=== PATIENT | female | born 1980 | race Caucasian/White ===

== ENCOUNTER 2024-12-20 12:53 | Observation (INO) | payer OTHER, SELFPAY ==
[2024-12-20 12:54] VITALS: BP 205/137; PULSE 86; RESP 20; TEMP 36.7; O2SAT 95
--- NOTE | 2024-12-20 13:26 | EDS_ITS ---
HPI History of Present Illness Chief Complaint: ETOH Intox Onset/Context/Timing Onset: Today Context: Gradual Onset Timing: Continuous Worsened by: Nothing Relieved by: Nothing Associated Symptoms Associated Symptoms: Positive for palpatations and no; Negative for vomiting*, diarrhea*, fever*, rash*, seizure, tremor, suicidal ideation or homicidal ideation Narrative Narrative: Patient presents requesting detox from alcohol. Patient states she drinks 1/5 of vodka per day. Patient states her last drink was this morning. Patient states she has never been through detox before. Patient states she has had some palpitations. Denies any seizures or tremors. Patient denies any nausea, vomiting, or diarrhea. Patient denies any suicidal or homicidal ideations. Patient denies any chance of . Patient states she ran out of her blood pressure medicine today. Patient states she takes losartan and clonidine. [facility] Medical History (Updated 12/20/24 @ 15:[address] Regulo Brady, DO) Alcohol abuse Hypertension Home Medications ?Medication ?Instructions ?Recorded ?Last Taken ?Type clonidine HCl 0.1 mg tablet 0.1 mg PO TID 12/20/24 History losartan 25 mg tablet 25 mg PO DAILY 12/20/2411/30 History Allergy/AdvReac Type Severity Reaction Status Date / Time codeine Allergy Vomiting Verified 12/20/24 12:57 walnut (walnuts) Allergy Anaphylaxis Verified 12/20/24 12:57 Surgical History (Updated 12/20/24 @ 14:[address] Regulo Brady, DO) History of ear surgery History of lumpectomy of left breast Hx of left knee surgery Social History (Updated 12/20/24 @ 14:[address] Regulo Brady, DO) Smoking Status: Never smoker alcohol intake: current alcohol intake frequency: 3 or more drinks per day Alcohol type: hard liquor substance use type: does not use ROS ROS ED Constitutional Constitutional ED: Denies chills or fever(s) Eyes Eyes: Denies blurry vision or change in vision ENT ENT ED: Denies rhinorrhea or sore throat Cardiovascular Cardiovascular: Reports palpitations; Denies chest pain Respiratory/Chest Respiratory/Chest: Denies cough or dyspnea Gastrointestinal Gastrointestinal: Denies nausea or vomiting Genitourinary Genitourinary ED: Denies dysuria or hematuria Musculoskeletal Musculoskeletal: Reports back pain; Denies neck pain Integumentary Denies abscess or rash Neurologic Neurologic: Denies headache(s) or weakness Allergic/Immunologic Allergic/Immunologic ED: Denies mouth swelling or urticaria EXAM Physical Exam Const Vital Signs: 12/20/24 12:54 12/20/24 13:54 12/20/24 14:12 Temperature 98.1 F Temperature Source Oral Pulse Rate 86 90 Respiratory Rate 20 H 18 18 Blood Pressure 205/137 H Blood Pressure Mean 159 Pulse Ox 95 98 Oxygen Delivery Method Room Air Room Air Room Air 12/20/24 15:00 12/20/24 15:00 Temperature 98 F Temperature Source Pulse Rate 66 69 Respiratory Rate 18 16 Blood Pressure 176/109 H 176/109 H Blood Pressure Mean 131 131 Pulse Ox 100 100 Oxygen Delivery Method Positive well nourished and well developed Constitutional Narrative: BMI is 30.1 General Appearance ED: well developed and NAD HEENT Reports moist mucous membranes Neck supple and no JVD Resp normal respiratory effort and clear to auscultation bilaterally Cardio regular rate and regular rhythm GI soft to palpation, non-tender and non-distended Neuro oriented x3, CN's II-XII intact bilaterally and no sensory deficits noted Sofy Coma Scale: document GCS findings Spontaneous Obeys Commands Oriented 15 Sensorium / Orientation: alert Speech: speech normal Motor Exam: strength 5/5 throughout, general weakness, strength abnormal and muscle tone abnormal Psych mental status grossly normal and thought process normal MDM MDM MDM Narrative Medical decision making narrative: Medical screening labs will be obtained. CBC will be obtained to assess for leukocytosis and anemia. Comprehensive metabolic profile will be obtained to assess for hepatic function, renal function, and electrolyte abnormality. Lipase will be obtained to assess for sepsis. Serum hCG will be obtained to assess for . Serum alcohol level will be obtained to assess for alcohol intoxication. Urinalysis will be obtained to assess for urinary tract infection and hematuria. Urine drug screen will be obtained to assess for substance abuse. Lab Data Attestation: I reviewed the patient's lab results. Lab results narrative: CBC was reviewed and was within normal limits. Comprehensive metabolic profile was reviewed and was essentially within normal limits. AST was slightly elevated at 147 and ALT was 78. Lipase was reviewed and was normal at 75. Se rum hCG was reviewed and was negative. Urinalysis was reviewed. There is 3+ bacteria but 10-25 epithelial cells. Urine ketones were 150. Urine tox screen was reviewed and was negative. Serum alcohol level was reviewed and was 67.9. Labs: Laboratory Results - last 24 hr 12/20/24 12/20/24 13:52 14:15 WBC 5.7 RBC 3.77 L Hgb 13.4 Hct 37.4 MCV 99.2 H MCH 35.5 H MCHC 35.8 RDW Std Deviation 47.8 H RDW Coeff of Rohan 13.2 Plt Count 156 MPV 10.6 Immature Gran % (Auto) 0.300 Neut % (Auto) 67.8 Lymph % (Auto) 22.6 [place] % (Auto) 7.3 Eos % (Auto) 1.0 Baso % (Auto) 1.0 Absolute Neuts (auto) 3.9 Absolute Lymphs (auto) 1.29 Nucleated RBC % 0 Sodium 138 Potassium 3.4 Chloride 98 Carbon Dioxide 21.4 Anion Gap 19 H BUN 6 Creatinine 0.62 L Estim Creat Clear Calc 107.42 Est GFR (MDRD) Non-Af 114 BUN/Creatinine Ratio 10.4 Glucose 75 Calcium 9.1 Total Bilirubin 0.86 AST 147 H ALT 78 H Alkaline Phosphatase 59 Total Protein 7.2 Albumin 4.5 Globulin 2.6 Albumin/Globulin Ratio 1.7 Lipase 75 Serum , Qual NEGATIVE Urine Color Yellow Urine Clarity Cloudy Urine pH 7.0 Ur Specific [place] 1.015 Urine Protein 100 H Urine Glucose (UA) Normal Urine Ketones 150 A* Urine Occult Blood 10 H Urine Nitrite Negative Urine Bilirubin Negative Urine Urobilinogen Normal Ur Leukocyte Esterase Negative Urine RBC 0-5 SEEN Urine WBC 0-5 SEEN Ur Squamous Epith Cells 10-25 SEEN Urine Bacteria 3+ Hyaline Casts 0-5 SEEN Urine Mucus 1+ Urine Opiates Screen NEGATIVE U Buprenorphine Qual NEGATIVE Ur Oxycodone Screen NEGATIVE Urine Methadone Screen NEGATIVE Urine Fentanyl Screen NEGATIVE Ur Barbiturates Screen NEGATIVE Ur Phencyclidine Scrn NEGATIVE Ur Amphetamines Screen NEGATIVE U Benzodiazepines Scrn NEGATIVE Urine Cocaine Screen NEGATIVE U Cannabinoids Screen NEGATIVE Ethyl Alcohol 67.9 H Treatment and Re-Evaluation Narrative: Patient was given her dose of losartan and clonidine. Patient's blood pressure improved to 176/109. Patient was advised of her findings. Case was discussed with the hospitalist. She will admit the patient to her service. Patient understood and was agreeable with the plan. All questions were answered. Discharge Plan Dx/Rx/DC Orders Clinical Impression: Alcohol withdrawal, Hypertension, Desire for detoxification Disposition Disposition: Acute Care Hospital [facility] Discharge Date/Time: 12/20/24 16:02
[2024-12-20 13:54] VITALS: PULSE 90; RESP 18; O2SAT 98
[2024-12-20 14:12] VITALS: RESP 18
[2024-12-20 14:22] LABS: Amphetamine Urine NEGATIVE (<1000 ng/mL); Barbiturate Urine NEGATIVE (< 200 ng/mL); Benzodiazepine Urine NEGATIVE (< 200 ng/mL); Buprenorphine Urine NEGATIVE (< 200 ng/mL); Cocaine Urine NEGATIVE (< 300 ng/mL); Fentanyl, Urine NEGATIVE; Methadone Urine NEGATIVE (< 300 ng/mL); Opiates Urine NEGATIVE (< 300 ng/mL); Oxycodone, Urine NEGATIVE (< 100 ng/mL); PCP Urine NEGATIVE (< 25 ng/mL); THC Urine NEGATIVE (< 50 ng/mL)
[2024-12-20 14:26] LABS: Color, Urine Yellow (Yellow); Glucose, Dipstick Normal (Normal); Leukocyte Esterase-Dipstick Negative /ul (Negative); Nitrite-Dipstick Negative (Negative); Occult Blood-Urine 10 /ul (Negative); Protein-Dipstick 100 mg/dl (Negative); Specific Gravity, Urine 1.015 (1.002-1.030); Urine Bilirubin Dipstick Negative (Negative); Urine Clarity Cloudy (Clear); Urine Urobilinogen Normal (Normal)
[2024-12-20 14:29] LABS: Absolute Lymphocyte Count 1.29 X10^3/uL (0.83-4.51); Absolute Neutrophil Count 3.9 X10^3/uL (2.0-7.7); Basophil# 0.06 X10^3/uL; Eosinophil# 0.06 X10^3/uL; Hematocrit 37.4 % (37-47); Hemoglobin 13.4 g/dL (12.0-15.0); Lymphocyte # 1.29 X10^3/ul (0.83-4.51); Lymphocyte % 22.6 % (19-41); Mean Corp Hgb Conc 35.8 g/dL (32-36); Mean Corpuscular Hgb 35.5 pg (27.0-32.0); Mean Corpuscular Volume 99.2 fL (81-99); Mean Platelet Vol. 10.6 fl (6.2-12.0); Monocyte# 0.42 X10^3/uL; Monocyte% 7.3 % (0-10); NRBC Flagged by Analyzer 0 % (0-5); Neutrophil # 3.87 X10^3/uL (2.7-7.7); Neutrophil % 67.8 % (47-70); Platelet Count 156 K/mm3 (150-450); RBC Distribution Width CV 13.2 % (11.6-14.6); RBC Distribution Width SD 47.8 fl (35.1-43.9); Red Blood Count 3.77 M/mm3 (4.2-5.4); White Blood Count 5.7 K/mm3 (4.4-11.0)
[2024-12-20 14:29] LABS: Ketone-Dipstick 150 mg/dl (Negative)
[2024-12-20 14:43] LABS: Internal QC Validated? YES +Cl - CLEAR BKGD; Pregnancy, Serum, hCG Quali. NEGATIVE Negative
[2024-12-20 14:48] LABS: Alcohol, Blood (Medical)-Serum 67.9 mg/dL (<=10.0)
[2024-12-20 14:49] LABS: ALB/GLOB Ratio 1.7 RATIO (0.9-2.4); AST(SGOT) 147 U/L (<=31); Alanine Aminotransfer ALT/SGPT 78 U/L (<=34); Albumin, Serum 4.5 g/dL (3.5-5.0); Alkaline Phosphatase 59 U/L (35-104); Anion Gap 19 (5-15); BUN 6 mg/dL (4-19); BUN/Creat Ratio 10.4 RATIO (10-20); Calcium,Total 9.1 mg/dL (7.6-11.0); Carbon Dioxide 21.4 mmol/L (21.0-32.0); Chloride 98 mmol/L (98-108); Creatinine, Serum 0.62 mg/dL (0.70-1.20); EST Glomerular Filtration Rate 114 (>60); Estimated Creatinine Clearance 107.42 ml/min (50-250); Globulin 2.6 g/dL (2.2-4.2); Glucose 75 mg/dL (70-99); Lipase 75 U/L (13-75); Potassium 3.4 mmol/L (3.3-5.1); Protein, Total 7.2 g/dL (5.9-8.4); Sodium Level 138 mmol/L (133-145); Total Bilirubin 0.86 mg/dL (0.00-1.30)
[2024-12-20 14:52] LABS: Red Blood Cells-Urine 0-5 SEEN /hpf (0-5); White Blood Cells 0-5 SEEN /hpf (0-5)
[2024-12-20 14:53] LABS: Bacteria 3+ /hpf (None Seen); Mucous, Urine 1+ /hpf (<or=2+); Squamous Epithelial Cells - UA 10-25 SEEN /hpf (5-10)
[2024-12-20 14:55] LABS: Hyaline Cast 0-5 SEEN /lpf (0-5)
[2024-12-20] MEDS: cloNIDine HCl 0.1 MG Tablet PO ×2 (14:58→20:09)
[2024-12-20] MEDS: Losartan Potassium 25 MG Tablet PO (14:58)
[2024-12-20 15:00] VITALS: BP 176/109; PULSE 66; PULSE 69; RESP 16; RESP 18; TEMP 36.6; O2SAT 100
--- NOTE | 2024-12-20 15:44 | PCM.HP.STD ---
HPI - General General Date of Admission: 12/20/24 Date of Service: 12/20/24 Chief Complaint: Alcohol detox HPI Narrative EVA EVANS, is a 44 F with a history of hypertension alcohol use disorder presented [facility] ED 12/20/2024 requesting detox. Blood pressure 176/109 in the ED otherwise vitally stable and lab workup only revealing for an AST of 147 and ALT of 78 with a alcohol level of 67.9. Hospitalist contacted for admission for detox. Patient evaluated at bedside. She reports she drinks about 1/5 of vodka a day or more and has for about a year but reports she has had a problem for about the past 5 years. Her last drink was some vodka this morning. She states usually she will start to get shaky and unwell by noon. Presently feels the shakes and nauseous and anxious. Has never been through detox before. Denies any tobacco or illicit substance use [facility] Medical History (Updated 12/20/24 @ 15:[address] Regulo Brady, DO) Alcohol abuse Hypertension Home Medications ?Medication ?Instructions ?Recorded ?Last Taken ?Type clonidine HCl 0.1 mg tablet 0.1 mg PO TID 12/20/24 12/20/24 History losartan 25 mg tablet 25 mg PO DAILY 12/20/24 12/19/24 History Allergy/AdvReac Type Severity Reaction Status Date / Time codeine Allergy Vomiting Verified 12/20/24 12:57 walnut (walnuts) Allergy Anaphylaxis Verified 12/20/24 12:57 Surgical History (Updated 12/20/24 @ 14:[address] Regulo Brady, DO) History of ear surgery History of lumpectomy of left breast Hx of left knee surgery Social History (Updated 12/20/24 @ 14:[address] Regulo Brady, DO) Smoking Status: Never smoker alcohol intake: current alcohol intake frequency: 3 or more drinks per day Alcohol type: hard liquor substance use type: does not use ROS ROS Narrative General: Denies fever/chills HENT: Bit of a headache, denies stuffy nose, denies sore throat EYES: Denies changes in vision Resp: Denies cough, denies shortness of breath Cardiac: Denies chest pain GI: Denies abdominal pain, feels little bit nauseous : Denies changes in urination Extremity: Denies swelling MSK: Denies weakness but does feel shaky Neuro: Denies any numbness/tingling Heme: Denies any bleeding or bruising Skin: Denies rashes Psychiatric: Feels anxious Vital Signs Vital Signs Vital Signs: 12/20/24 12:54 12/20/24 13:54 12/20/24 14:12 Temperature 98.1 F Temperature Source Oral Pulse Rate 86 90 Respiratory Rate 20 H 18 18 Blood Pressure 205/137 H Blood Pressure Mean 159 Pulse Ox 95 98 Oxygen Delivery Method Room Air Room Air Room Air 12/20/24 15:00 12/20/24 15:00 Temperature 98 F Temperature Source Pulse Rate 66 69 Respiratory Rate 18 16 Blood Pressure 176/109 H 176/109 H Blood Pressure Mean 131 131 Pulse Ox 100 100 Oxygen Delivery Method Weight Weight: 72.212 kg Body Mass Index (BMI) 30.0 Physical Exam Narrative General: Alert, oriented HEENT: Atraumatic, normocephalic Eyes: Anicteric, normal conjunctiva, extraocular movements grossly intact Neck: Supple Respiratory: Clear to auscultation bilaterally, normal respiratory effort Cardiovascular: Regular rate and rhythm GI: Soft, nontender, nondistended Extremities: No edema Musculoskeletal: Moving all extremities Neuro: No overt focal neurological deficits Skin: No rashes appreciated Psych: Cooperative but anxious Results Lab / Micro Data 12/20/24 14:15 12/20/24 14:15 Labs: Laboratory Results - last 24 hr 12/20/24 13:52: Urine Color Yellow, Urine Clarity Cloudy, Urine pH 7.0, Ur Specific [place] 1.015, Urine Protein 100 H, Urine Glucose (UA) Normal, Urine Ketones 150 A*, Urine Occult Blood 10 H, Urine Nitrite Negative, Urine Bilirubin Negative, Urine Urobilinogen Normal, Ur Leukocyte Esterase Negative, Urine RBC 0-5 SEEN, Urine WBC 0-5 SEEN, Ur Squamous Epith Cells 10-25 SEEN, Urine Bacteria 3+, Hyaline Casts 0-5 SEEN, Urine Mucus 1+, Urine Opiates Screen NEGATIVE, U Buprenorphine Qual NEGATIVE, Ur Oxycodone Screen NEGATIVE, Urine Methadone Screen NEGATIVE, Urine Fentanyl Screen NEGATIVE, Ur Barbiturates Screen NEGATIVE, Ur Phencyclidine Scrn NEGATIVE, Ur Amphetamines Screen NEGATIVE, U Benzodiazepines Scrn NEGATIVE, Urine Cocaine Screen NEGATIVE, U Cannabinoids Screen NEGATIVE 12/20/24 14:15: WBC 5.7, RBC 3.77 L, Hgb 13.4, Hct 37.4, MCV 99.2 H, MCH 35.5 H, MCHC 35.8, RDW Std Deviation 47.8 H, RDW Coeff of Rohan 13.2, Plt Count 156, MPV 10.6, Immature Gran % (Auto) 0.300, Neut % (Auto) 67.8, Lymph % (Auto) 22.6, [place] % (Auto) 7.3, Eos % (Auto) 1.0, Baso % (Auto) 1.0, Absolute Neuts (auto) 3.9, Absolute Lymphs (auto) 1.29, Nucleated RBC % 0, Sodium 138, Potassium 3.4, Chloride 98, Carbon Dioxide 21.4, Anion Gap 19 H, BUN 6, Creatinine 0.62 L, Estim Creat Clear Calc 107.42, Est GFR (MDRD) Non-Af 114, BUN/Creatinine Ratio 10.4, Glucose 75, Calcium 9.1, Total Bilirubin 0.86, AST 147 H, ALT 78 H, Alkaline Phosphatase 59, Total Protein 7.2, Albumin 4.5, Globulin 2.6, Albumin/Globulin Ratio 1.7, Lipase 75, Serum , Qual NEGATIVE, Ethyl Alcohol 67.9 H Assessment & Plan Assessment/Plan (1) Alcohol withdrawal: PLAN: Plan #Alcohol use disorder - We will begin CIWA every 4 for 24 hours, then every 6 for 24 hours, then every 12 until discharge -Will begin phenobarbital taper -Gabapentin 300 mg every 8 as needed -Will start Bentyl and hydroxyzine as needed as well as loperamide as needed -Trazodone 100 mg p.o. nightly as needed sleep -Begin thiamine and folic acid supplementation -Zofran as needed for nausea -Case management consult to assist with discharge planning -EtOH 67.9 -UDS negative # Hypertension - Continue patient's home medications # Elevated LFTs - Suspect due to heavy alcohol use - Repeat in a.m., likely does need cessation outpatient follow-up #DVT ppx: Low risk, ambulatory Tammy Byrne MD Charges/Coding Visit Charges Inpatient E&M: 86458 Init Hosp L1
[2024-12-20] MEDS: Phenobarbital 32.4 MG Tablet PO ×2 (16:17→20:09)
[2024-12-20 16:55] VITALS: BMI 30.1
[2024-12-20 17:01] VITALS: BP 175/115; PULSE 73; RESP 16; TEMP 36.8; O2SAT 100
[2024-12-20] MEDS: Gabapentin 300 MG Capsule PO (17:27)
[2024-12-20] MEDS: Ibuprofen 600 MG Tablet PO (18:28)
[2024-12-20] MEDS: Ondansetron 8 MG Tablet PO (18:29)
[2024-12-20 20:07] VITALS: BP 169/111; PULSE 85; RESP 17; TEMP 37.2; O2SAT 98
[2024-12-20] MEDS: traZODone 100 MG Tablet PO (20:15)
[2024-12-20] MEDS: hydrOXYzine PAM 25 MG Capsule 50 MG PO (20:16)
[2024-12-21] MEDS: Phenobarbital 32.4 MG Tablet PO ×6 (00:14→20:37)
[2024-12-21] MEDS: hydrOXYzine PAM 25 MG Capsule 50 MG PO ×4 (00:16→14:53)
[2024-12-21 00:18] VITALS: BP 156/108; PULSE 107; RESP 18; TEMP 36.6; O2SAT 99
[2024-12-21] MEDS: Gabapentin 300 MG Capsule PO ×3 (04:34→20:52)
[2024-12-21] MEDS: cloNIDine HCl 0.1 MG Tablet PO ×3 (04:34→20:51)
[2024-12-21] MEDS: Losartan Potassium 25 MG Tablet PO ×2 (04:35→08:09)
[2024-12-21] MEDS: Ondansetron 8 MG Tablet PO ×3 (04:38→20:51)
[2024-12-21 04:43] VITALS: BP 143/107; PULSE 83; RESP 17; TEMP 36.6; O2SAT 99
[2024-12-21 07:28] LABS: ALB/GLOB Ratio 1.6 RATIO (0.9-2.4); AST(SGOT) 68 U/L (<=31); Alanine Aminotransfer ALT/SGPT 50 U/L (<=34); Albumin, Serum 3.7 g/dL (3.5-5.0); Alkaline Phosphatase 47 U/L (35-104); Anion Gap 14 (5-15); BUN 9 mg/dL (4-19); BUN/Creat Ratio 12.5 RATIO (10-20); Calcium,Total 8.8 mg/dL (7.6-11.0); Carbon Dioxide 23.5 mmol/L (21.0-32.0); Chloride 97 mmol/L (98-108); Creatinine, Serum 0.68 mg/dL (0.70-1.20); EST Glomerular Filtration Rate 111 (>60); Globulin 2.2 g/dL (2.2-4.2); Glucose 86 mg/dL (70-99); Potassium 3.6 mmol/L (3.3-5.1); Protein, Total 5.9 g/dL (5.9-8.4); Sodium Level 134 mmol/L (133-145); Total Bilirubin 1.07 mg/dL (0.00-1.30)
[2024-12-21 08:00] VITALS: BP 145/105; PULSE 81; RESP 15; TEMP 36.4; O2SAT 98
[2024-12-21] MEDS: Folic Acid 1 MG Tablet PO (08:09)
[2024-12-21] MEDS: Thiamine Hydrochloride 100 MG Tablet PO (08:09)
[2024-12-21] MEDS: Ibuprofen 600 MG Tablet PO (08:15)
[2024-12-21] MEDS: 0.9% Saline Lock 10 ML Syringe IV ×2 (08:21→20:37)
--- NOTE | 2024-12-21 11:58 | ADDICTION ---
This press writer met with PT to conduct ASAM, MSE, AUDIT assessments and to plan for d/c. PT A+Ox4 and participated actively. All assessments completed and placed in PT's chart. PT plans to f/u with [facility] for follow-up sober support services. She also meets criteria for Vivitrol and would like the shot prior to discharge. PT did not indicate a need for transportation post d/c from [facility].
[2024-12-21 14:00] VITALS: BP 135/98; PULSE 78; RESP 14; TEMP 36.7; O2SAT 99
--- NOTE | 2024-12-21 16:23 | PN.HOSP_ITS ---
Reason for Visit Reason for Visit: Diagnoses Alcohol use, unspecified with withdrawal, unspecified (12/20/24) Objective Data Objective Data Vital Signs: Vital Signs Temp Pulse Resp BP Pulse Ox O2 Del Method 98.1 F 78 14 135/98 H 99 Room Air 12/21/24 14:00 12/21/24 14:00 12/21/24 14:00 12/21/24 14:00 12/21/24 14:00 12/21/24 14:00 Oxygen Delivery Method Room Air Weight: 159 lb 6.307 oz Body Mass Index (BMI) 30.1 Lab / Micro Data 12/20/24 14:15 12/21/24 06:23 Labs: Laboratory Results - last 24 hr 12/21/24 06:23: Sodium 134, Potassium 3.6, Chloride 97 L, Carbon Dioxide 23.5, Anion Gap 14, BUN 9, Creatinine 0.68 L, Estim Creat Clear Calc 98.00, Est GFR (MDRD) Non-Af 111, BUN/Creatinine Ratio 12.5, Glucose 86, Calcium 8.8, Total Bilirubin 1.07, AST 68 H, ALT 50 H, Alkaline Phosphatase 47, Total Protein 5.9, Albumin 3.7, Globulin 2.2, Albumin/Globulin Ratio 1.6 Physical Exam Narrative Seen and examined Patient is stated that she started drinking alcohol in her 20s as a recreational and and on occasion. But then during COVID time she started drinking hard liquor including rum and whiskey frequently on the weekends, then frequency and amount got worse which recently she was drinking a pint of vodka. She denies other substance use. She tried to seek help as an outpatient. She has hypertension and fatty liver. Denies any chronic stigmata of liver disease Physical exam General: Alert, Oriented x3, Cooperative. BMI 30.1 kg/m?, obesity grade 1 HEENT: Atraumatic, PERRLA, EOMI, Normocephalic Oral: No Gingival or Mucosal Lesions/ Ulcerations Neck: Supple, No JVD, Negative Carotid Bruits Chest wall/Lungs: Air entry diminished in bilateral lung bases. No crepitation/rhonchi Cardiovascular: Regular rate, Regular Rhythm, Normal S1, Normal S2, No M/G/R Abdomen: Bowel Sounds Present, Soft, Non Tender, Non-Distended : No dysuria. No renal angle tenderness. No suprapubic tenderness. Extremities: No edema, Capillary Refill Less than 3 Seconds Skin: No rashes, No breakdown Musculoskeletal: No Tenderness to Palpation of Joints or Extremities. Mild tremors in hand Neurological: Cranial nerves II-XII grossly intact, DTR 2+/4. No acute focal neurological deficit. Psych/Mental Status: Normal Affect, Appropriate. Assessment & Plan Assessment/Plan (1) Alcohol withdrawal: PLAN: Plan 1. Acute alcohol withdrawal syndrome with history of chronic alcohol use dependence and tolerance: [facility] Patient on phenobarbital based order set along with other adjunctive medications gabapentin, Bentyl, Vistaril, clonidine, Klonopin as needed for alcohol withdrawal symptom control. Patient is on thiamine and folate acid. CIWA monitor. revenue accounting manager [id number] consulted. -EtOH 67.9 -UDS negative # Hypertension - Continue patient's home medications # Chronic alcoholic hepatitis: No liver chemistry available to review prior to the admission. AST more than 2 times ALT. Plan for sodium normal to be normal. Transaminases improving. - Discussed with the FLORIN Felix/rehabilitation case coordinator [id number] to evaluate for naltrexone IM injection as an outpatient #DVT ppx: Low risk, ambulatory Laboratory Results 12/21/24 06:23: Sodium 134, Potassium 3.6, Chloride 97 L, Carbon Dioxide 23.5, Anion Gap 14, BUN 9, Creatinine 0.68 L, Estim Creat Clear Calc 98.00, Est GFR (MDRD) Non-Af 111, BUN/Creatinine Ratio 12.5, Glucose 86, Calcium 8.8, Total Bilirubin 1.07, AST 68 H, ALT 50 H, Alkaline Phosphatase 47, Total Protein 5.9, Albumin 3.7, Globulin 2.2, Albumin/Globulin Ratio 1.6 Charges/Coding Visit Charges Inpatient E&M: 45202 Subs Hosp L2
[2024-12-21] MEDS: Loperamide 2 MG Capsule PO (17:25)
[2024-12-21] MEDS: Dicyclomine 10 MG Capsule 20 MG PO (17:27)
[2024-12-21 20:35] VITALS: BP 143/107; PULSE 70; RESP 16; TEMP 36.6; O2SAT 99
[2024-12-21] MEDS: traZODone 100 MG Tablet PO (20:51)
[2024-12-22] VITALS (9 sets, daily range): BP systolic 116–183; BP diastolic 82–117; PULSE 69–155; RESP 16–22; TEMP 36.6–37.1; O2SAT 94–99
[2024-12-22] MEDS: Phenobarbital 32.4 MG Tablet PO ×6 (01:06→20:09)
[2024-12-22] MEDS: hydrOXYzine PAM 25 MG Capsule 50 MG PO ×3 (01:13→20:09)
[2024-12-22] MEDS: Gabapentin 300 MG Capsule PO ×2 (05:15→15:11)
[2024-12-22] MEDS: cloNIDine HCl 0.1 MG Tablet PO ×3 (05:15→20:10)
[2024-12-22] MEDS: Folic Acid 1 MG Tablet PO (09:28)
[2024-12-22] MEDS: Thiamine Hydrochloride 100 MG Tablet PO (09:28)
--- NOTE | 2024-12-22 15:04 | CHAPLAIN ---
Type of Pastoral Visit _x__ Initial Visit ___ Follow-up Visit ___ On-call Visit ___ General Patient Visit ___ Spiritual Assessment ___ Family Conference ___ Bereavement ___ Rapid Response ___ Code Blue ___ Other (describe below) Pastoral Care Referral From _x__ Patient ___ Family ___ Nurse ___ Physician ___ Water Valve Mechanic ___ Soaking Pits Supervisor ___ Other (describe below) Sacrament/Intervention _x__ Active listening ___ Anointing ___ Caodaism ___ Bereavement ___ Communion _x__ Britt exploration ___ _x__ Life review _x__ Prayer ___ Reconciliation ___ Sacrament of Sick _x__ Supportive presence ___ Wedding ___ Other (describe below) Pastoral Comments patient had been taking a walk around the unit; pt is friendly and welcoming; 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
[2024-12-22] MEDS: Dicyclomine 10 MG Capsule 20 MG PO (15:10)
[2024-12-22] MEDS: Ondansetron 8 MG Tablet PO (15:11)
--- NOTE | 2024-12-22 16:20 | PCM.PN.HOSP ---
Reason for Visit Reason for Visit: Diagnoses Alcohol use, unspecified with withdrawal, unspecified (12/20/24) Objective Data Objective Data Vital Signs: Vital Signs Temp Pulse Resp BP Pulse Ox O2 Del Method 98.4 F 73 18 151/108 H 98 Room Air 12/22/24 15:12 12/22/24 15:12 12/22/24 15:12 12/22/24 15:12 12/22/24 15:12 12/22/24 15:12 Oxygen Delivery Method Room Air Weight: 159 lb 6.307 oz Body Mass Index (BMI) 30.1 Lab / Micro Data 12/20/24 14:15 12/21/24 06:23 Physical Exam Narrative Seen and examined No acute withdrawal symptoms. Patient is doing good. Patient is stated that she started drinking alcohol in her 20s as a recreational and and on occasion. But then during COVID time she started drinking hard liquor including rum and whiskey frequently on the weekends, then frequency and amount got worse which recently she was drinking a pint of vodka. She denies other substance use. She tried to seek help as an outpatient. She has hypertension and fatty liver. Denies any chronic stigmata of liver disease Physical exam General: Alert, Oriented x3, Cooperative. BMI 30.1 kg/m?, obesity grade 1 HEENT: Atraumatic, PERRLA, EOMI, Normocephalic Oral: No Gingival or Mucosal Lesions/ Ulcerations Neck: Supple, No JVD, Negative Carotid Bruits Chest wall/Lungs: Air entry diminished in bilateral lung bases. No crepitation/rhonchi Cardiovascular: Regular rate, Regular Rhythm, Normal S1, Normal S2, No M/G/R Abdomen: Bowel Sounds Present, Soft, Non Tender, Non-Distended : No dysuria. No renal angle tenderness. No suprapubic tenderness. Extremities: No edema, Capillary Refill Less than 3 Seconds Skin: No rashes, No breakdown Musculoskeletal: No Tenderness to Palpation of Joints or Extremities. Tremors are controlled. Neurological: Cranial nerves II-XII grossly intact, DTR 2+/4. No acute focal neurological deficit. Psych/Mental Status: Normal Affect, Appropriate. Assessment & Plan Assessment/Plan (1) Alcohol withdrawal: PLAN: Plan 1. Acute alcohol withdrawal syndrome with history of chronic alcohol use dependence and tolerance: Patient is being admitted to [facility] floor. Patient on phenobarbital based order set along with other adjunctive medications gabapentin, Bentyl, Vistaril, clonidine, Klonopin as needed for alcohol withdrawal symptom control. Patient is on thiamine and folate acid. CIWA monitor. logistics program manager [id number] consulted. -EtOH 67.9 -UDS negative 12/22: Discussed with Isidro. Patient meets the criteria for Vivitrol. Will order Vivitrol before discharge. Patient does not do opioid medication or dependence therefore good candidate. # Hypertension - Continue patient's home medications # Chronic alcoholic hepatitis: No liver chemistry available to review prior to the admission. AST more than 2 times ALT. Plan for sodium normal to be normal. Transaminases improving. - Discussed with the FLORIN Felix/case preparer and liner 180 to evaluate for naltrexone IM injection as an outpatient #DVT ppx: Low risk, ambulatory Laboratory Results 12/21/24 06:23: Sodium 134, Potassium 3.6, Chloride 97 L, Carbon Dioxide 23.5, Anion Gap 14, BUN 9, Creatinine 0.68 L, Estim Creat Clear Calc 98.00, Est GFR (MDRD) Non-Af 111, BUN/Creatinine Ratio 12.5, Glucose 86, Calcium 8.8, Total Bilirubin 1.07, AST 68 H, ALT 50 H, Alkaline Phosphatase 47, Total Protein 5.9, Albumin 3.7, Globulin 2.2, Albumin/Globulin Ratio 1.6 Charges/Coding Visit Charges Inpatient E&M: 32552 Subs Hosp L2
[2024-12-22] MEDS: traZODone 100 MG Tablet PO (20:10)
[2024-12-22] MEDS: 0.9% Saline Lock 10 ML Syringe IV ×2 (21:27→23:41)
[2024-12-22] MEDS: Lorazepam 2 MG/ML WCH Syringe IV ×2 (21:27→23:41)
--- NOTE | 2024-12-22 22:10 | NURSING ---
Pt wandering around unit in and out of other pt rooms, hallucinating, trying to get in her tote, observed crawling on the floor in her room and turning her table upside down, staff returned her to her room but unable to reorient her. Pt pulled her IV out . mortar worker aware and notified , prior ativan and prns not effective. Pt being transferred to ICU.
--- NOTE | 2024-12-22 22:25 | NURSING ---
report given to susan cope icu
[2024-12-22] MEDS: dexMEDEtomidine 400 MCG in 0.9% Normal Saline (100mL Bag) 96 ML 9 MCG CONT INF (22:50)
--- NOTE | 2024-12-22 23:46 | PN.HOSP_ITS ---
Hospitalist Note I was contacted by RN caring for patient on floor and informed she was severely agitated and difficult to manage. She was given 2 mg of IV Ativan without improvement so order was placed for her to go to the ICU to start Precedex. Unfortunately, shortly after arrival there she required multiple staff members to hold her down with escalating agitation and belligerence so she was ordered a 4 mg dose of IV Ativan in an effort to calm her down. She was switched to IV phenobarbital to prevent worsening symptoms of withdrawal. ADVANCED PRACTICE NURSE PSYCHOTHERAPIST was updated with plan.
[2024-12-23] VITALS (28 sets, daily range): BP systolic 97–199; BP diastolic 74–139; PULSE 59–119; RESP 14–23; TEMP 36.4–37.8; O2SAT 92–100; BMI 31.0
[2024-12-23] MEDS: Lorazepam 2 MG/ML WCH Syringe IV (00:24)
[2024-12-23] MEDS: 0.9% Saline Lock 10 ML Syringe IV ×2 (00:24→20:34)
[2024-12-23] MEDS: Phenobarbital Sodium 65 MG/ML Vial 100 MG IV ×4 (00:43→20:29)
[2024-12-23] MEDS: hydrALAZINE 20 MG/ML Vial 10 MG IV (00:44)
--- NOTE | 2024-12-23 01:02 | NURSING ---
Pt was extremely agitated upon admission. Pulled out an IV and was trying to get out of bed. Multiple staff members in the room attempted to redirect patient. This was unsuccessful therefore 4mg of Ativan given and Precedex increased per protocol.
[2024-12-23] MEDS: dexMEDEtomidine 400 MCG in 0.9% Normal Saline (100mL Bag) 96 ML 25.3 MCG CONT INF (02:18)
[2024-12-23 03:48] LABS: ALB/GLOB Ratio 1.6 RATIO (0.9-2.4); AST(SGOT) 37 U/L (<=31); Alanine Aminotransfer ALT/SGPT 38 U/L (<=34); Albumin, Serum 3.9 g/dL (3.5-5.0); Alkaline Phosphatase 53 U/L (35-104); Anion Gap 12 (5-15); BUN 5 mg/dL (4-19); BUN/Creat Ratio 7.9 RATIO (10-20); Calcium,Total 9.1 mg/dL (7.6-11.0); Chloride 101 mmol/L (98-108); Creatinine, Serum 0.61 mg/dL (0.70-1.20); EST Glomerular Filtration Rate 115 (>60); Estimated Creatinine Clearance 109.25 ml/min (50-250); Globulin 2.5 g/dL (2.2-4.2); Glucose 140 mg/dL (70-99); Potassium 3.2 mmol/L (3.3-5.1); Protein, Total 6.4 g/dL (5.9-8.4); Sodium Level 136 mmol/L (133-145); Total Bilirubin 0.52 mg/dL (0.00-1.30)
--- NOTE | 2024-12-23 08:26 | PN.HOSP_ITS ---
Reason for Visit Reason for Visit: Diagnoses Alcohol use, unspecified with withdrawal, unspecified (12/20/24) Objective Data Objective Data Vital Signs: Vital Signs Temp Pulse Resp BP Pulse Ox O2 Del Method O2 Flow Rate 97.6 F L 68 16 130/95 H 92 Room Air 2 12/23/24 04:00 12/23/24 08:00 12/23/24 08:00 12/23/24 08:00 12/23/24 08:00 12/23/24 08:00 12/23/24 07:00 Oxygen Flow Rate (L/min) 2 Oxygen Delivery Method Room Air Weight: 164 lb 7.437 oz Body Mass Index (BMI) 31.0 Intake & Output: Intake and Output for Last 24 Hours 12/21/24 12/22/24 12/23/24 23:59 23:59 23:59 Intake Total 11.76 / 11.76 102.52 / 102.52 Balance 11.76 / 11.76 102.52 / 102.52 Lab / Micro Data 12/20/24 14:15 12/23/24 03:20 Labs: Laboratory Results - last 24 hr 12/23/24 03:20: Sodium 136, Potassium 3.2 L, Chloride 101, Carbon Dioxide 23.0, Anion Gap 12, BUN 5, Creatinine 0.61 L, Estim Creat Clear Calc 109.25, Est GFR (MDRD) Non-Af 115, BUN/Creatinine Ratio 7.9 L, Glucose 140 H, Calcium 9.1, Total Bilirubin 0.52, AST 37 H, ALT 38 H, Alkaline Phosphatase 53, Total Protein 6.4, Albumin 3.9, Globulin 2.5, Albumin/Globulin Ratio 1.6 Physical Exam Narrative Seen and examined Overnight events noted. Patient was extremely agitated, belligerent and difficult to manage on the floor even after giving Ativan therefore was transferred to ICU. As per nursing staff she was also crawling on the floor, disoriented and hallucinating. Patient was started on IV Precedex Patient is stated that she started drinking alcohol in her 20s as a recreational and and on occasion. But then during COVID time she started drinking hard liquor including rum and whiskey frequently on the weekends, then frequency and amount got worse which recently she was drinking a pint of vodka. She denies other substance use. She tried to seek help as an outpatient. She has hypertension and fatty liver. Denies any chronic stigmata of liver disease Physical exam General: Sedated BMI 30.1 kg/m?, obesity grade 1 HEENT: Atraumatic, PERRLA, EOMI, Normocephalic Oral: No Gingival or Mucosal Lesions/ Ulcerations Neck: Supple, No JVD, Negative Carotid Bruits Chest wall/Lungs: Air entry diminished in bilateral lung bases. No crepitation/rhonchi Cardiovascular: Regular rate, Regular Rhythm, Normal S1, Normal S2, No M/G/R Abdomen: Bowel Sounds Present, Soft, Non Tender, Non-Distended : No dysuria. No renal angle tenderness. No suprapubic tenderness. Extremities: No edema, Capillary Refill Less than 3 Seconds Skin: No rashes, No breakdown Musculoskeletal: No Tenderness to Palpation of Joints or Extremities. Tremors are controlled. Neurological: Sedated. No long tract lateralization signs Psych/Mental Status: Seated Assessment & Plan Assessment/Plan (1) Alcohol withdrawal: PLAN: Plan 1. Acute alcohol withdrawal syndrome with history of chronic alcohol use dependence and tolerance: Patient is being admitted to MedSurg floor. Patient on phenobarbital based order set along with other adjunctive medications gabapentin, Bentyl, Vistaril, clonidine, Klonopin as needed for alcohol withdrawal symptom control. Patient is on thiamine and folate acid. CIWA monitor. supply chain design manager [phone] consulted. -EtOH 67.9 -UDS negative 12/22: Discussed with Isidro. Patient meets the criteria for Vivitrol. Will order Vivitrol before discharge. Patient does not do opioid medication or dependence therefore good candidate. 12/23: Patient was improving but to U-turn,, exact etiology unclear. She was extremely agitated belligerent and hallucinating last night therefore transferred to ICU and started on Precedex drip. Phenobarb on hold. Vivitrol which was ordered before discharge is canceled. Currently on 0.5 mcg/kg/h of Precedex. . # Hypertension - Continue patient's home medications # Chronic alcoholic hepatitis: No liver chemistry available to review prior to the admission. AST more than 2 times ALT. Plan for sodium normal to be normal. Transaminases improving. 12/23: AST and ALT improving. Alkaline phosphatase normal. #DVT ppx: Low risk, ambulatory Laboratory Results 12/21/24 06:23: Sodium 134, Potassium 3.6, Chloride 97 L, Carbon Dioxide 23.5, Anion Gap 14, BUN 9, Creatinine 0.68 L, Estim Creat Clear Calc 98.00, Est GFR (MDRD) Non-Af 111, BUN/Creatinine Ratio 12.5, Glucose 86, Calcium 8.8, Total Bilirubin 1.07, AST 68 H, ALT 50 H, Alkaline Phosphatase 47, Total Protein 5.9, Albumin 3.7, Globulin 2.2, Albumin/Globulin Ratio 1.6 Laboratory Results 12/23/24 03:20: Sodium 136, Potassium 3.2 L, Chloride 101, Carbon Dioxide 23.0, Anion Gap 12, BUN 5, Creatinine 0.61 L, Estim Creat Clear Calc 109.25, Est GFR (MDRD) Non-Af 115, BUN/Creatinine Ratio 7.9 L, Glucose 140 H, Calcium 9.1, Total Bilirubin 0.52, AST 37 H, ALT 38 H, Alkaline Phosphatase 53, Total Protein 6.4, Albumin 3.9, Globulin 2.5, Albumin/Globulin Ratio 1.6 Charges/Coding Visit Charges Inpatient E&M: 39409 Subs Hosp L3
[2024-12-23] MEDS: Potassium Chloride 10mEq/100mL 10 MEQ/100 ML IV.SOLN. 100 MEQ IV BOLUS ×2 (08:58→10:13)
[2024-12-23] MEDS: dexMEDEtomidine 400 MCG in 0.9% Normal Saline (100mL Bag) 96 ML 14.5 MCG CONT INF (12:07)
[2024-12-23] MEDS: cloNIDine HCl 0.1 MG Tablet PO (20:29)
[2024-12-23] MEDS: Ibuprofen 600 MG Tablet PO (20:38)
[2024-12-23] MEDS: dexMEDEtomidine 400 MCG in 0.9% Normal Saline (100mL Bag) 96 ML CONT INF (21:00)
[2024-12-23 22:39] LABS: Magnesium 1.4 mg/dL (1.5-2.2); Phosphorus 4.4 mg/dL (2.7-4.5)
--- NOTE | 2024-12-23 23:10 | NURSING ---
Precedex drip in fusing at 0.08mcg/kg/hr on arrival to unit. Report and charting indicated rate of 0.8mcg/kg/hr. Pt tolerating 0.08mcg/kg/hr rate up to the time of this notation, calm and cooperative. Now experiencing Increased restlessness. Rate increased to 0.3mcg/kg/hr. HS cares encouraged and perform assist provided. Up to BSC. Discontinued External Catheter, voiding without complaint. Encouraged Pt to turn down lights and try to rest.Pt verbalized understanding at this time. Support and education provided. Bed in lowest position and locked, bed alarm and non-recording video monitoring for safety. No additional needs or concerns verbalized or identified.
[2024-12-24] VITALS (15 sets, daily range): BP systolic 84–141; BP diastolic 57–108; PULSE 60–116; RESP 12–22; TEMP 36.1–36.7; O2SAT 93–98; BMI 31.4
[2024-12-24] MEDS: traZODone 100 MG Tablet PO (00:10)
--- NOTE | 2024-12-24 00:46 | NURSING ---
Precedex drip paused, R/T Pt resting with eyes closed, HR 77, BP 107/87. HS Trazodone administered. No acute s/s of distress noted at this time. Will continue to monitor closely.
[2024-12-24 04:46] LABS: Absolute Lymphocyte Count 1.53 X10^3/uL (0.83-4.51); Absolute Neutrophil Count 6.5 X10^3/uL (2.0-7.7); Basophil# 0.05 X10^3/uL; Basophil% 0.6 % (0-1); Eosinophil# 0.18 X10^3/uL; Eosinophils% 2.1 % (0-5); Hematocrit 33.6 % (37-47); Hemoglobin 12.2 g/dL (12.0-15.0); Lymphocyte # 1.53 X10^3/ul (0.83-4.51); Lymphocyte % 17.4 % (19-41); Mean Corp Hgb Conc 36.3 g/dL (32-36); Mean Corpuscular Hgb 35.7 pg (27.0-32.0); Mean Corpuscular Volume 98.2 fL (81-99); Monocyte# 0.52 X10^3/uL; Monocyte% 5.9 % (0-10); NRBC Flagged by Analyzer 0 % (0-5); Neutrophil # 6.47 X10^3/uL (2.7-7.7); Neutrophil % 73.7 % (47-70); Platelet Count 146 K/mm3 (150-450); RBC Distribution Width CV 13.1 % (11.6-14.6); RBC Distribution Width SD 46.7 fl (35.1-43.9); Red Blood Count 3.42 M/mm3 (4.2-5.4); White Blood Count 8.8 K/mm3 (4.4-11.0)
[2024-12-24 05:31] LABS: Magnesium 1.3 mg/dL (1.5-2.2)
[2024-12-24 05:43] LABS: Anion Gap 11 (5-15); BUN 4 mg/dL (4-19); BUN/Creat Ratio 6.9 RATIO (10-20); Calcium,Total 8.4 mg/dL (7.6-11.0); Carbon Dioxide 23.9 mmol/L (21.0-32.0); Chloride 98 mmol/L (98-108); Creatinine, Serum 0.62 mg/dL (0.70-1.20); EST Glomerular Filtration Rate 114 (>60); Glucose 100 mg/dL (70-99); Potassium 3.1 mmol/L (3.3-5.1); Sodium Level 134 mmol/L (133-145)
[2024-12-24] MEDS: Phenobarbital Sodium 65 MG/ML Vial 100 MG IV (06:21)
[2024-12-24] MEDS: 0.9% Saline Lock 10 ML Syringe IV ×2 (06:23→08:12)
[2024-12-24] MEDS: Potassium Chloride Oral Tablet 20 MEQ 40 MEQ PO ×2 (08:08→11:43)
[2024-12-24 08:09] LABS: AST(SGOT) 37 U/L (<=31); Alanine Aminotransfer ALT/SGPT 33 U/L (<=34); Albumin, Serum 3.5 g/dL (3.5-5.0); Alkaline Phosphatase 48 U/L (35-104); Bilirubin, Direct 0.17 mg/dL (0.00-0.30); Globulin 2.3 g/dL (2.2-4.2); Protein, Total 5.7 g/dL (5.9-8.4); Total Bilirubin 0.53 mg/dL (0.00-1.30)
--- NOTE | 2024-12-24 08:09 | DCINST_ITS ---
Discharge Instructions Diet Discharge Diet: No restrictions DC O2, CPAP, BIPAP needs Home O2 Discharge instructions: No Dressing / Incision Discharge Activity: Return to Normal Activity and May Not Drive (for 2 days) Weight Bearing Status: Weight bearing as tolerated Dressing / Incision Call your doctor if you observe: Fever of 101 or Higher, Coldness, Increased Pain, Numbness or Tingling, Change in Color, Inability to urinate, Inability to have a bowel movement, Shortness of breath, Dizziness, Fainting spells, Swelling in the ankles, Chest pain, Prolonged hiccupping, Increased palpitations (irregular heartbeat) and Calf discomfort Follow Up Care When: IN 2 WEEKS Test Results: Test results from this visit will be discussed in further detail at your follow- up appointment, if applicable. Discharge Plan Admission Admit Date/Time: 12/20/24 15:44 Attending Provider: Lyle Raphael Primary Care Provider: IMTIAZ BRADSHAW Consulting Providers: Tammy Byrne Instructions Additional Instructions / Restrictions: Follow-up outpatient alcohol rehab program Discharge Orders/Prescriptions Prescriptions: New thiamine HCl (vitamin B1) 100 mg Tablet 100 mg PO DAILYCM 30 Days Qty: 30 3RF potassium chloride 20 mEq Tablet,Er Particles/Crystals 40 meq PO DAILY 5 Days Qty: 10 0RF folic acid 1 mg Tablet 1 mg PO DAILY@0800 30 Days Qty: 30 3RF losartan 50 mg tablet 25 mg PO DAILY Qty: 30 1RF Continued clonidine HCl 0.1 mg tablet 0.1 mg PO TID Discontinued losartan 25 mg tablet 25 mg PO DAILY Referrals / Follow Up: IMTIAZ BRADSHAW [Other] IMTIAZ BRADSHAW [Other] Disposition Disposition (needs filled in before D/C Order can be placed): Home, Self Care
[2024-12-24] MEDS: Thiamine Hydrochloride 100 MG Tablet PO (08:14)
[2024-12-24] MEDS: Folic Acid 1 MG Tablet PO (08:14)
[2024-12-24] MEDS: Magnesium Sulfate 4gm/100mL 4 GM/100 ML IV.SOLN. IV (08:14)
[2024-12-24] MEDS: Losartan Potassium 25 MG Tablet PO (08:14)
--- NOTE | 2024-12-24 08:16 | PCM.DC.SUM ---
Providers Date of Admission: 12/20/24 Date of Discharge: 12/24/24 Primary Care Physician: IMTIAZ BRADSHAW Reason For Visit: ALCOHOL DETOX Diagnosis Discharge Diagnosis (1) Alcohol withdrawal: Status: Acute Code(s): F10.939 - Alcohol use, unspecified with withdrawal, unspecified Plan This is 44-year-old female was admitted with acute alcohol withdrawal syndrome. Patient started drinking alcohol in her 20s as a recreational and and on occasion. But then during COVID time she started drinking hard liquor including rum and whiskey frequently on the weekends, then frequency and amount got worse which recently she was drinking a pint of vodka. She denies other substance use. She tried to seek help as an outpatient. She has hypertension and fatty liver. Denies any chronic stigmata of liver disease 1. Acute alcohol withdrawal syndrome with history of chronic alcohol use dependence and tolerance: Patient is being admitted to MedSur floor. Patient on phenobarbital based order set along with other adjunctive medications gabapentin, Bentyl, Vistaril, clonidine, Klonopin as needed for alcohol withdrawal symptom control. Patient is on thiamine and folate acid. CIWA monitor. technical manager chemical plant 180 consulted. -EtOH 67.9 -UDS negative 12/22: Discussed with Isidro. Patient meets the criteria for Vivitrol. Will order Vivitrol before discharge. Patient does not do opioid medication or dependence therefore good candidate. 12/23: Patient was improving but to U-turn,, exact etiology unclear. She was extremely agitated belligerent and hallucinating last night therefore transferred to ICU and started on Precedex drip. Phenobarb on hold. Vivitrol which was ordered before discharge is canceled. Currently on 0.5 mcg/kg/h of Precedex. 12/24: Patient is feeling better. Precedex drip was discontinued at 12:30 AM today. Patient was sleeping but she awoke. She remembers the events. She said her day before yesterday she was having visual hallucinations, acting weird, nightmares and feels sorry about it. Vivitrol injection IM ordered after discussion with the pharmacist and the nursing staff. Hypomagnesemia and hypokalemia: Potassium and magnesium replacement ordered. # Hypertension - Continue patient's home medications # Chronic alcoholic hepatitis: No liver chemistry available to review prior to the admission. AST more than 2 times ALT. Plan for sodium normal to be normal. Transaminases improving. 12/23: AST and ALT improving. Alkaline phosphatase normal. 12/24: ALT normal 33. AST 37 improving. Other liver chemistry are in normal limit. Albumin 3.5, low normal #DVT ppx: Low risk, ambulatory Patient will be given Vivitrol, naltrexone 380 IM and then observed for about 2 to 3 hours and then patient was admitted as inpatient but was discharged because of sooner recovery than expected at time of admission. Discharge medication reconciliation done. Discharge follow-up instructions completed. Discharge process discussed with the patient and all questions were answered to patient's satisfaction. Follow with PCP in 1 to 2 weeks Total time spent, exact 35 minutes on discharge meds reconciliation, examination, coordination of care with nurses and ancillary staff, review of imaging and blood test and discussion with the patient on follow-up instructions. Medications at Discharge Home Medications clonidine HCl 0.1 mg tablet 0.1 mg PO TID 12/20/24 folic acid 1 mg tablet 1 mg PO DAILY@0800 30 days #30 tabs 12/24/24 losartan 50 mg tablet 25 mg (1/2 x 50 mg) PO DAILY #30 tabs 12/24/24 potassium chloride 20 mEq tablet,extended release(part/cryst) 40 meq (2 x 20 mEq) PO DAILY 5 days #10 tabs 12/24/24 thiamine HCl (vitamin B1) 100 mg tablet 100 mg PO DAILYCM 30 days #30 tabs 12/24/24 Physical Exam Narrative Seen and examined Patient is doing well. Precedex drip was stopped at 12:30 AM. She was sleeping but woke up. She remembers the events. Denies visual hallucinations. No shakiness. Physical exam General: Awake, alert and oriented x 3 BMI 30.1 kg/m?, obesity grade 1 HEENT: Atraumatic, PERRLA, EOMI, Normocephalic Oral: No Gingival or Mucosal Lesions/ Ulcerations Neck: Supple, No JVD, Negative Carotid Bruits Chest wall/Lungs: Air entry diminished in bilateral lung bases. No crepitation/rhonchi Cardiovascular: Regular rate, Regular Rhythm, Normal S1, Normal S2, No M/G/R Abdomen: Bowel Sounds Present, Soft, Non Tender, Non-Distended : No dysuria. No renal angle tenderness. No suprapubic tenderness. Extremities: No edema, Capillary Refill Less than 3 Seconds Skin: No rashes, No breakdown Musculoskeletal: No Tenderness to Palpation of Joints or Extremities. Tremors are controlled. Neurological: Sedated. No long tract lateralization signs Psych/Mental Status: Precedex we will discontinue Weight / BMI Weight Weight: 166 lb 3.657 oz Body Mass Index (BMI) 31.4 ABG / Lab / Microbiology Data 12/24/24 05:01 12/24/24 04:30 Laboratory: Laboratory Results - last 24 hr 12/23/24 03:20: Phosphorus 4.4, Magnesium 1.4 L 12/24/24 04:30: Sodium 134, Potassium 3.1 L, Chloride 98, Carbon Dioxide 23.9, Anion Gap 11, BUN 4, Creatinine 0.62 L, Estim Creat Clear Calc 109.80, Est GFR (MDRD) Non-Af 114, BUN/Creatinine Ratio 6.9 L, Glucose 100 H, Calcium 8.4, Magnesium 1.3 L, Total Bilirubin 0.53, Direct Bilirubin 0.17, AST 37 H, ALT 33, Alkaline Phosphatase 48, Total Protein 5.7 L, Albumin 3.5, Globulin 2.3 12/24/24 05:01: WBC 8.8, RBC 3.42 L, Hgb 12.2, Hct 33.6 L, MCV 98.2, MCH 35.7 H, MCHC 36.3 H, RDW Std Deviation 46.7 H, RDW Coeff of Rohan 13.1, Plt Count 146 L, MPV 11.0, Immature Gran % (Auto) 0.300, Neut % (Auto) 73.7 H, Lymph % (Auto) 17.4 L, [place] % (Auto) 5.9, Eos % (Auto) 2.1, Baso % (Auto) 0.6, Absolute Neuts (auto) 6.5, Absolute Lymphs (auto) 1.53, Nucleated RBC % 0 D/C Instructions Discharge Diet: No restrictions Weight Bearing Status: Weight bearing as tolerated Call your doctor if you observe: Fever of 101 or Higher, Coldness, Increased Pain, Numbness or Tingling, Change in Color, Inability to urinate, Inability to have a bowel movement, Shortness of breath, Dizziness, Fainting spells, Swelling in the ankles, Chest pain, Prolonged hiccupping, Increased palpitations (irregular heartbeat) and Calf discomfort DC O2, CPAP, BIPAP Needs Home O2 Discharge instructions: No When: IN 2 WEEKS Meaningful Use Info Meaningful Use Meaningful Use Diagnoses (Choose all that apply): None applicable Ischemic Stroke Statin Dosing Therapy Reference: STATIN DOSE THERAPY REFERENCE: * Patients > 75 years receive moderate or high dose statin therapy. * Patients 75 years or YOUNGER should receive HIGH intensity statin dose unless contraindicated. You will be required to document reason for non-treatment if statin daily dose does not meet guidelines. HIGH DOSE STATIN THERAPY DAILY Atorvastatin > than or = to 40 mg Rosuvastatin > than or = to 20 mg Amlodipine + Atorvastatin > than or = to 2.5/40 mg Ezetimibe + Simvastatin 10/80 mg Simvastatin 80mg Discharge Plan Admission Admit Date/Time: 12/20/24 15:44 Primary Reason for Your Visit: Acute alcohol withdrawal syndrome with acute on chronic alcoholic hepatitis Attending Provider: Lyle Raphael Primary Care Provider: IMTIAZ BRADSHAW Consulting Providers: Tammy Byrne Instructions Additional Instructions / Restrictions: Follow-up outpatient alcohol rehab program Discharge Orders/Prescriptions Prescriptions: New thiamine HCl (vitamin B1) 100 mg Tablet 100 mg PO DAILYCM 30 Days Qty: 30 3RF potassium chloride 20 mEq Tablet,Er Particles/Crystals 40 meq PO DAILY 5 Days Qty: 10 0RF folic acid 1 mg Tablet 1 mg PO DAILY@0800 30 Days Qty: 30 3RF losartan 50 mg tablet 25 mg PO DAILY Qty: 30 1RF Continued clonidine HCl 0.1 mg tablet 0.1 mg PO TID Discontinued losartan 25 mg tablet 25 mg PO DAILY Referrals / Follow Up: IMTAIZ BRADSHAW [Other] IMTIAZ BRADSHAW [Other] Tiff Adames PA [Med Staff - Adv Practice Prof] - Within 1 Month Disposition Disposition (needs filled in before D/C Order can be placed): Home, Self Care Charges/Coding Visit Charges Inpatient E&M: 36798 Disch Hosp >30min
[2024-12-24] MEDS: Naltrexone Microspheres 380 MG SYRINGE IM (09:39)
--- OUTSIDE RECORDS SUMMARY | 2025-02-23 07:18 | XMS RPT_ITS ---
Author Name Auto Generated Organization OH[facility] Care Team Providers Care Order Entry Specialist Name Role Phone IMTIAZ BRADSHAW Attending Physician Unavailable DARIN OLIVAREZ Primary Care Physician Unavaila IMTIAZ Mcgee Attending Physician Unavailable DARIN OLIVAREZ Primary Care Physician Unavaila ble MAGY RICHARDSON Attending Physician Unavailable DARIN OLIVAREZ Primary Care Physician Unavaila ble DARIN OLIVAREZ Attending Physician Unavailable DARIN OLIVAREZ Primary Care Physician Unavaila ble IMTIAZ BRADSHAW Unavailable Unavailable SHER, DARIN [facility] Primary Care Physician Unavaila ble DEBRA, MAGY M Unavailable Unavailable SHER, DARIN L Primary Care Physician Unavaila ble PROBLEMS DATE TYPE CONDITION / CODE ATTENDING STATUS [facility] 02/02/2025 Admitting Diagnosis Encounter for screening mammogram for malignant neoplasm of breast / Z12.31(ICD-10) [facility] 02/02/2025 Admitting Diagnosis Encounter for screening for malignant neoplasm of cervix / Z12.4(ICD-10) [facility] 02/02/2025 Admitting Diagnosis Encounter for gynecological examination (general) (routine) without abnormal findings / Z01.419(ICD-10) [facility] 01/24/2025 Admitting Diagnosis Gastro-esophageal reflux disease without esophagitis / K21.9(ICD-10) IMTIAZ BRADSHAW [facility] 01/04/2025 Admitting Diagnosis Alcohol dependence with alcohol-induced anxiety disorder (Multi) / F10.280(ICD-10) BRADSHAW, IMTIAZ [facility] 01/04/2025 Admitting Diagnosis Tachycardia, unspecified / R00.0(ICD-10) BRADSHAWIMTIAZ Jacobs [facility] 01/04/2025 Admitting Diagnosis Other secondary hypertension / I15.8(ICD-10) IMTIAZ BRADSHAW [facility] 01/04/2025 Admitting Diagnosis Other chest pain / R07.89(ICD-10) [facility] RESULTS BI MAMMO BILATERAL SCREENING TOMOSYNTHESIS Observed: 02/08/2025 8:23 AM Status: F Source: [facility] Interpreted By: Uziel Hull, STUDY: BI MAMMO BILATERAL SCREENING TOMOSYNTHESIS; 02/08/2025 8:42 am ACCESSION NUMBER(S): [id number] ORDERING CLINICIAN: MAGY RICHARDSON INDICATION: Screening. ,Z12.31 Encounter for screening mammogram for malignant neoplasm of breast COMPARISON: None. FINDINGS: 2D and tomosynthesis images were reviewed at 1 mm slice thickness. Density: The breasts are heterogeneously dense, which may obscure small masses. No suspicious masses or calcifications are identified. A scar marker is present on the medial upper aspect of the left breast. CAD was utilized. IMPRESSION: No mammographic evidence of malignancy. BI-RADS CATEGORY: BI-RADS Category: 1 Negative. Recommendation: Annual Screening. Recommended Date: 1 Year. Laterality: Bilateral. For any future breast imaging appointments, please call [phone] MACRO: None Signed by: Hilario Hull 02/08/2025 2:24 PM Dictation workstation: [id number] HUMAN PAPILLOMA VIRUS 16 Collected: 12/2024 3:17 PM Status: F Source: [facility] Order Comment: Testing for h igh-risk (HR) types of human papilloma virus (HPV) is performed by the Vanessa ananya HPV Test. The ananya HPV Test is a qualitative polymerase chain reaction that amplifies DNA of HPV16, HPV18, and 12 other high-risk HPV types (31, 33, 35, 39, 45, 51, 52, 56, 58, 59, 66, and 68) associated with cervical cancer and its precursor lesions. A positive result indicates the presence of HPV DNA due to one or more of the 14 genotypes: 16, 18, 31, 33, 35, 39, 45, 51, 52, 56, 58, 59, 66, and 68. Negative results indicates HPV DNA concentrations are undectectable or below the pre-set threshold for detection. False negative results may be associated with unoptimized sampling. A negative HR HPV result does not exclude the possibility of future cytologic HSIL or underlying CIN2-3 or cancer. This test is approved by the US Food and Drug Administration. Results of this test should be interpreted in conjunction with the patient Pap test results. Please refer to ASCCP current quidelines for the use of HPV DNA testing, result interpretation, and patient management. The performance of this test was verified by the [facility] at [facility]. The lab is certified under the Clinical Laboratory Amendments of 1988 (CLIA 88) as qualified to perform high complexity clinical laboratory testing. PERFORMING LAB LOCATIONS [facility]: [address] [place] [address] TYPE CODE TESTS RESULT OUT OF RANGE REFERENCE UNITS LAB 49496-2(LOINC) Human papilloma virus high-risk genotypes panel Negative Negative LAB 84222-9(LOINC) Human papilloma virus 16 DNA Negative Negative LAB 47912-7(LOINC) Human papilloma virus 18 DNA Negative Negative LAB 86076-2(LOINC) Human papilloma virus 31+33+35+39+4 5+51+52+56+58 +59+66+68 DNA Negative Negative Performed By: INGRID Inter[facility] ([id number]) [facility] ([facility]) [address] [place] [address] CERVICAL Observed: 02/02/2025 3:17 PM Status: F Source: [facility] Pathology report.total SEE COMMENT Gynecologic Cytology Case: [id number] Authorizing Provider: EMORY Obregon, Collected: 02/02/2025 1517 HERRERA, ION [facility] Received: 02/02/2025 1517 First Screen: Jasmyn Ugarte, SUSIE Specimen: ThinPrep Liquid-Based Pap-Imaging System Screen, CERVIX, SCREENING Cytology study comment SEE COMMENT A. THINPREP PAP CERVIX, SCREENING - Specimen Adequacy Satisfactory for evaluation; absence of endocervical/transformation zone component Quality Indicator: Partially obscured by cytolysis General Categorization Negative for intraepithelial lesion or malignancy. Descriptive Interpretation Negative for intraepithelial lesion or malignancy at 1214 EDT Laboratory comment SEE COMMENT Slide(s) initially screened by SUSIE Cartagena at [facility] [address] [facility] [address] By the signature on this report, the individual or group listed as making the Final Interpretation/Diagnosis certifies that they have reviewed this case. This specimen has been analyzed by the [employer] Living[employer] Imaging System ([employer] an automated imaging and review system, which assists the laboratory in evaluating cells on ThinPrep Pap tests. Following automated imaging, selected augustin from every slide were reviewed by a sponge fisherman and/or pathologist. Cervical cytology is a screening procedure primarily for squamous cancers and precursors and has associated false-negative and false-positives results as evidenced by published data. Your patient's test should be interpreted in this context, together with the patient's history and clinical findings. Regular sampling and follow-up of unexplained clinical signs and symptoms are recommended to minimize false negative results. LAB AP HPV HR Always (all interpretations) LAB AP HPV GENOTYPE QUESTION Yes Date last menstrual period 01/07/2025 US ABDOMEN COMPLETE Observed: 01/31/2025 7:06 AM Status: F Source: [facility] Interpreted By: Uziel Hull, STUDY: US ABDOMEN COMPLETE; 01/31/2025 7:51 am INDICATION: Signs/Symptoms:rule out gallbladder disease, acid reflux, chest pain. COMPARISON: None. ACCESSION NUMBER(S): [id number] ORDERING CLINICIAN: IMTIAZ BRADSHAW TECHNIQUE: Multiple images of the abdomen were obtained. FINDINGS: LIVER: The liver measures 15.0 cm and is grossly unremarkable and free of any focal lesions. GALLBLADDER: The gallbladder is nondistended, and demonstrates no evidence of gallstones, wall thickening or surrounding fluid. The gallbladder wall thickness is 0.1 cm. Sonographic Tinsley's sign is negative. BILE DUCTS: No evidence of intra or extrahepatic biliary dilatation is identified; the common bile duct measures 0.3 cm. PANCREAS: The visualized pancreas is unremarkable in appearance. RIGHT KIDNEY: The right kidney measures 9.4 cm in length. The renal cortical echogenicity and thickness are within normal limit. The cortical thickness is 11 mm. No hydronephrosis or renal calculi are seen. LEFT KIDNEY: The left kidney measures 9.8 cm in length. The renal cortical echogenicity and thickness are within normal limits. The cortical thickness is 10 mm. No hydronephrosis or renal calculi are seen. SPLEEN: The spleen measures 10.2 cm and is grossly unremarkable PERITONEUM: There is no free or loculated fluid seen in the abdomen. ABDOMINAL AORTA AND IVC: The visualized portions of the aorta and IVC are unremarkable. IMPRESSION: 1. Normal examination. MACRO: None Signed by: Hilario Hull 01/31/2025 3:27 PM Dictation workstation: [id number] BASIC METABOLIC PANEL WITH ANION GAP Collected: 01/04/2025 12:20 PM Status: F Source: [facility] Order Comment: FASTING:YES FASTING: YES TYPE CODE TESTS RESULT OUT OF RANGE REFERENCE UNITS LAB [id number] GLUCOSE 83 Normal 65-99 mg/dL Result Comment: Fasting reference interval LAB [id number] UREA NITROGEN (BUN) 7 Normal 7-25 mg/dL LAB 06016605 CREATININE 0.68 Normal 0.50-0.99 mg/dL LAB 85036882 EGFR 111 Normal > OR = 60 mL/min/1 .73m2 LAB 44173393 BUN/CREATININE RATIO SEE NOTE: 6-22 (calc) Result Comment: Not Reported : BUN and Creatinine are within reference range. LAB 23199002 SODIUM 137 Normal 135-146 mmol/L LAB 12342920 POTASSIUM 4.2 Normal 3.5-5.3 mmol/L LAB 05495174 CHLORIDE 100 Normal 98-110 mmol/L LAB 53762413 CARBON DIOXIDE 24 Normal 20-32 mmol/L LAB 14467933 ELECTROLYTE BALANCE 13 Normal 7-17 mmol/L (calc) LAB 09788579 CALCIUM 9.5 Normal 8.6-10.2 mg/dL Performed By: [facility] [address], [address] [place] [address] Polysomnographer: Shlomo Garcia MD VITAMIN B1 (THIAMINE), BLOOD , LC/MS/MS Collected: 01/04/2025 12:20 PM Status: F Source: [facility] TYPE CODE TESTS RESULT OUT OF RANGE REFERENCE UNITS LAB 60440597 VITAMIN B1 (THIAMINE), BLOOD, LC/MS/MS 178 78-185 nmol/L Result Comment: Vitamin supplementation within 24 hours prior to blood draw may affect the accuracy of the results. This test was developed and its analytical performance characteristics have been determined by [employer] [place], [place]. It has not been cleared or approved by the U.S. Food and Drug Administration. This assay has been validated pursuant to the CLIA regulations and is used for clinical purposes. Performed By: [facility] [address] [facility] [place] [address] Polysomnographer: Dionte Caraballo M.D.,PhD FOLATE, SERUM Collected: 5 12:20 PM Status: F Source: [facility] TYPE CODE TESTS RESULT OUT OF RANGE REFERENCE UNITS LAB [id number] FOLATE, SERUM 12.9 Normal ng/mL Result Comment: Reference Ra nge Low: <3.4 Borderline: 3.4-5.4 Normal: >5.4 Performed By: [facility] [address], [address] [place] [address] Polysomnographer: Shlomo Garcia MD ALLERGIES DATE TYPE / CODE NAME / CODE REACTION SEVERITY SOURCE 06/20/2024 DRUG/20106794 3(SNOMED CT) PROPOXYPHENE N-ACETAMINOPHEN Nausea/vomit [facility] 05/20/2024 DRUG INGREDI~Food/ 639407751(SNO MED CT) WALNUT Anaphylaxis [facility] 02/20/2022 Drug Class~Food/41 2137469(SNOME D CT) TREE NUTS [facility] 10/14/2011 DRUG INGREDI/20846 1003(SNOMED CT) CODEINE Other [facility] 10/14/2011 DRUG INGREDI/54170 1003(SNOMED CT) PROPOXYPHENE NandV [facility] ENCOUNTERS ADMIT/DISCHARGE ACCOUNT NUMBER ADMITTING ENCOUNTER CLASS LOCATION SOURCE 02/23/2025/ 5 [id number] Ambulatory Building:[facility] [id number] [facility] 02/08/2025/ 5 [id number] Ambulatory Building:[facility] 02/02/2025/ 5 [id number] Ambulatory Building:[facility] ugarbuOBG [facility] 01/31/2025/ 5 [id number] Ambulatory Building:[facility] 01/24/2025/ 5 [id number] Ambulatory Building:[facility] [id number] [facility] 01/04/2025/ 5 [id number] Ambulatory Building:[facility] [id number] Ambulatory PAYERS ENCOUNTER GUARANTOR PAYER SUBSCRIBER SOURCE 02/23/2025 EVA LANGFORDSUSAN[facility] [place] [place] [address]Snu: () Primary Insurance:[employer] [facility] Number: [id number] ve Date:2023-08-31 TE ANAHYOB: [id number] [place], [place] [address]Ehd: () [facility] 02/08/2025 EVA Jacobs ANAHYOB[facility] [place] [address]Eyi: (HP) Primary Insurance:[employer] [facility] Number: [id number] ve Date:2023-08-31 TE ANAHYOB: [id number] [place], [place] [address]Igm: () [facility] 02/02/2025 EVA Jacobs ANAHYOB: [id number] [place] [address]Udt: () Primary Insurance:[employer] [facility] Number: [id number] ve Date:2023-08-31 TE ANAHYOB: [id number] [facility] [place] [address]Gco: (HP) [facility] 01/31/2025 EVA Jacobs ANAHYOB: [id number] [facility] [place] [address]Ceg: () Primary Insurance:[facility] Number: [id number] ve Date:2023-08-31 TE ANAHYOB: [id number] [facility] [place], [place] [address]Rhw: () [facility] 01/24/2025 EVA Jacobs ANAHYOB: [id number] [address] [place], [place] [address]Cem: () Primary Insurance:[facility] Number: [id number] ve Date:2023-08-31 TE ANAHYOB: [id number] [address] [place], [place] [address]Vsp: () [facility] 01/04/2025 EVA Jacobs ANAHYOB: [id number] [address] [place], [place] [address]Bah: () Primary Insurance:[facility] Number: [id number] ve Date:2023-08-31 TE ANAHYOB: [id number] [address] [place], [place] [address]Toe: () [facility]
== END 2024-12-24 14:00 | disposition home or self-care (01) ==
LOC: ED 15:38 → MS3 12-21 07:03 → ICU 12-24 08:10 → MS3 12-05 08:52
PROVIDERS: Internal Medicine; Admitting Provider Internal Medicine; Emergency Provider Emergency Medicine; Visit Provider Internal Medicine
DX: F10.239 Alcohol dependence with withdrawal, unspecified (principal); K70.10 Alcoholic hepatitis without ascites; E66.811 Obesity, class 1; I10 Essential (primary) hypertension; E87.6 Hypokalemia; Y90.3 Blood alcohol level of 60-79 mg/100 ml; Z79.899 Other long term (current) drug therapy; Z68.30 Body mass index [BMI] 30.0-30.9, adult
CPT/HCPCS: 36415; 80048; 80053; 80076; 80307; 81001; 82077; 83690; 83735; 84100; 84703; 85025; 96365; 96366; 96368; 96372; 96375; 96376; 99221; 99284; A4216; G0378